=== PATIENT | female | born 1995 | race Caucasian/White ===

== ENCOUNTER 2019-02-16 04:20 | Emergency (ER) | payer BC ==
[~2019-02-16 04:20] MED LIST: DOCU-416 PO; HYDR-385 PO; MINO100C27 PO; NO RTN MEDS; OXYC-854 PO
--- NOTE | 2019-02-16 04:24 | ER Report ---
History and Physical Time Seen By MD: 04:20 HPI/ROS CHIEF COMPLAINT: Right flank pain HISTORY OF PRESENT ILLNESS: 23-year-old female presents to the ER with her father complaining of severe right flank pain since 2:30 AM. Patient's history is significant for developing a kidney stone with right flank pain. On Monday of this last week she was in [place], [place]. She was seen by urology and had a stent placed in her right ureter. They were unable to retrieve a 3 mm kidney stone. Patient reports she's not had a bowel movement since Monday. She was taking hydrocodone for pain relief. She took Zofran at home tonight before coming in. She's also been taking Tylenol for pain relief as well as ibuprofen. She's not really had any pain. Her last menstrual period was over the January. Patient has repetitive vomiting during the interview of food matter in clear substance. No blood was noted REVIEW OF SYSTEMS: Respiratory: No cough, no dyspnea. Cardiovascular: No chest pain, no palpitations. Gastrointestinal: As above Musculoskeletal: As above Allergies: Coded Allergies: amoxicillin (Verified Allergy, Intermediate, RASH, 02/21/19) Home Meds Active Scripts Tramadol Hcl (TRAMADOL HCL) 50 Mg Tablet, 50-100 MG PO Q4-6H, #14 TAB 0 Refills Prov:TAE ZAZUETA [facility]- 02/21/19 Promethazine Hcl (PROMETHAZINE HCL) 25 Mg Tablet, 25 MG PO Q8H, #20 TAB 0 Refills Prov:TAE ZAZUETA [facility] 02/21/19 Ciprofloxacin Hcl 500 Mg Tab (CIPRO 500 MG TAB) 500 Mg Tablet, 500 MG PO BID for infection, #14 Prov:ZORAN FALLON DO 02/16/19 Reported Medications Ondansetron Hcl (ONDANSETRON HCL) 4 Mg Tablet, 4 MG PO Q8H PRN for NAUSEA, #10 TAB 02/18/19 Ibuprofen (IBUPROFEN) 600 Mg Tablet, 1 TAB PO Q6H PRN for pain, #20 TAB 02/18/19 Docusate Sodium (COLACE) 100 Mg Capsule, 100 MG PO BID, #30 CAPSULE 02/18/19 Hydrocodone Bit/Acetaminophen (NORCO 5-325 TABLET) 1 Each Tablet, 1-2 EACH PO Q6H PRN for pain, #10 TAB 02/18/19 Oxybutynin Chloride (DITROPAN XL) 10 Mg Tab.er.24, 10 MG PO QDAY PRN for bladder urgency, #10 TAB 02/18/19 Doxycycline Hyclate (DOXYCYCLINE HYCLATE) 100 Mg Tablet.dr, 100 MG PO QDAY 02/18/19 Discontinued Reported Medications Minocycline Hcl (MINOCYCLINE HCL) 100 Mg Capsule, 100 MG PO QDAY, CAPSULE 07/05/17 Discontinued Scripts Hydrocodone Bit/Acetaminophen (HYDROCODON-ACETAMINOPHEN 5-325) 1 Each Tablet, 1 EACH PO Q4-6H PRN for PAIN, #12 TAKE ONE TABLET BY MOUTH EVERY 4-6 HOURS NEEDED FOR PAIN Prov:ZORAN FALLON DO 02/16/19 Ondansetron 4 Mg Odt (ONDANSETRON 4 MG ODT) 4 Mg Tab.rapdis, 4 MG PO Q6H PRN for NAUSEA/VOMITING, #12 TAB Prov:ZORAN FALLON DO 02/16/19 Hydrocodone Bit/Acetaminophen (HYDROCODON-ACETAMINOPHEN 5-325) 1 Each Tablet, 1- 2 TAB PO Q4H PRN for PAIN, #20 TAB 0 Refills Prov:VANGIE MERRILL MD 07/20/17 Docusate Sodium (COLACE) 100 Mg Capsule, 1 CAP PO BID, #30 CAP 0 Refills TAKE WITH A FULL GLASS OF WATER Prov:VANGIE MERRILL MD 07/20/17 Reviewed Nurses Notes: Yes Old Medical Records Reviewed: Yes Hx Smoking: No Smoking Status: Never Smoker Exposure to Second Hand Smoke?: No Constitutional Physical Exam General Appearance: The patient is alert, has no immediate need for airway protection and no current signs of toxicity. Skin pale, cool and dry Eyes: Pupils equal and round no injection. Anicteric sclera Respiratory: Chest is non tender, lungs are clear to auscultation. Cardiac: regular rate and rhythm Gastrointestinal: Abdomen is soft and non tender, no masses, bowel sounds normal. Right CVA tenderness Musculoskeletal: Neck: Neck is supple and non tender. Extremities have full range of motion and are non tender. Skin: No rashes or lesions. DIFFERENTIAL DIAGNOSIS: After history and physical exam differential diagnosis was considered for flank pain including but not limited to musculoskeletal causes, kidney stone, pyelonephritis, shingles, and intra-abdominal causes such as diverticulitis and appendicitis. Additionally,abdominal pain including but not limited to appendicitis, cholecystitis, gastritis and urinary tract infection. Medical Decision Making Data Points Laboratory Hematology Test 02/16/19 04:29 White Blood Count 7.3 k/uL (4.5-11.0) Red Blood Count 5.00 M/uL (4.17-5.56) Hemoglobin 15.2 g/dL (12.0-16.0) Hematocrit 43.4 % (34.0-47.0) Mean Corpuscular Volume 86.8 fL (80.0-96.0) Mean Corpuscular Hemoglobin 30.4 pg (26.0-33.0) Mean Corpuscular Hemoglobin Concent 35.1 g/dL (32.0-36.0) Red Cell Distribution Width 12.8 % (11.5-14.5) Platelet Count 261 K/uL (150-450) Mean Platelet Volume 8.3 fL (7.2-11.1) Neutrophils (%) (Auto) 58.6 % (39.4-72.5) Lymphocytes (%) (Auto) 30.0 % (17.6-49.6) Monocytes (%) (Auto) 8.1 % (4.1-12.4) Eosinophils (%) (Auto) 2.8 % (0.4-6.7) Basophils (%) (Auto) 0.5 % (0.3-1.4) Nucleated RBC Relative Count (auto) 0.0 /100WBC Neutrophils # (Auto) 4.3 K/uL (2.0-7.4) Lymphocytes # (Auto) 2.2 K/uL (1.3-3.6) Monocytes # (Auto) 0.6 K/uL (0.3-1.0) Eosinophils # (Auto) 0.2 K/uL (0.0-0.5) Basophils # (Auto) 0.0 K/uL (0.0-0.1) Nucleated RBC Absolute Count (auto) 0.00 K/uL Chemistry Test 02/16/19 04:29 Sodium Level 138 mmol/L (137-145) Potassium Level 3.5 mmol/L (3.5-5.0) Chloride Level 104 mmol/L (98-107) Carbon Dioxide Level 24 mmol/L (22-31) Blood Urea Nitrogen 10 mg/dl (7-18) Creatinine 0.90 mg/dl (0.52-1.04) Glomerular Filtration Rate Calc > 60.0 Random Glucose 94 mg/dl (75-110) Calcium Level 9.2 mg/dl (8.4-10.2) Total Bilirubin 0.5 mg/dl (0.2-1.3) Aspartate Amino Transf (AST/SGOT) 22 U/L (0-35) Alanine Aminotransferase (ALT/SGPT) 29 U/L (0-56) Alkaline Phosphatase 46 U/L (0-126) Total Protein 7.5 g/dl (6.3-8.2) Albumin 4.5 g/dl (3.5-5.0) Amylase Level 61 U/L (0-110) Lipase 90 U/L (23-300) Human Chorionic Gonadotropin, Qual Negative (NEGATIVE) Urinalysis Test 02/16/19 04:26 Urine Color Yellow Urine Clarity Cloudy Urine pH 6.0 pH (4.8-9.5) Urine Specific [place] 1.016 Urine Protein 100 mg/dL (NEGATIVE) Urine Glucose (UA) Negative mg/dL (NEGATIVE) Urine Ketones Negative mg/dL (NEGATIVE) Urine Blood Large (NEGATIVE) Urine Nitrite Negative (NEGATIVE) Urine Bilirubin Negative (NEGATIVE) Urine Urobilinogen Negative mg/dL (0.2-1.9) Urine Leukocyte Esterase Moderate (NEGATIVE) Urine RBC 2330 /HPF (0-2/HPF) Urine WBC 112 /HPF (0-5/HPF) Urine Squamous Epithelial Cells Many /LPF (</=FEW) Urine Bacteria Many /HPF (NONE-FEW) Urine Mucus Few /HPF (NONE-FEW) Microbiology Microbiology Date/Time Source Procedure Growth Status 02/16/19 04:26 Clean Catch Midstream Ur Urine Culture - Final NO GROWTH AFTER 2 DAYS Complete EKG/Imaging Imaging Results: CT scan of the abdomen and pelvis with IV contrast was obtained. The results of the study are COMPUTED TOMOGRAPHY ABDOMEN AND PELVIS WITH INTRAVENOUS CONTRAST DATE OF EXAM: 02/16/2019 4:41 AM INDICATION: Severe right flank pain. Recent ureteral stent placement. No bowel movements. COMPARISON: None. TECHNIQUE: Contrast enhanced abdomen and pelvis CT performed during the injection of 75 ml of Isovue 370. Sagittal and coronal reconstructions were performed. One of the following dose optimization techniques was utilized in the performance of this exam: Automated exposure control; adjustment of the mA and/or kV according to the patient's size; or use of an iterative reconstruction technique. Specific details can be referenced in the facility's radiology CT exam operational policy. FINDINGS: Lung bases: 4 mm right lower lobe nodule on image 11 series 2 likely does not require follow-up given the patient's age. Minimal atelectasis. Liver and hepatic vasculature: Normal. Gallbladder and bile ducts: Normal. Spleen: Normal. Pancreas: Normal. Adrenals: Normal. Kidneys, ureters and bladder: Right ureteral stents in place with pigtails in the urinary bladder and collecting system. Mild right hydronephrosis and hydroureter. The right kidney is slightly hypoenhancing compared to the left. No suspicious focal lesion. No apparent renal or ureteral calculi. Retroperitoneum and aorta: Normal aorta. Retroaortic left renal vein. No adenopathy. GI tract, mesentery and peritoneum: Nonacute. Uterus and adnexa: Collapsing follicle in the right ovary. Bones and soft tissues: No acute abnormality or suspicious lesion. Mild leftward curvature of the lumbar spine. IMPRESSION: Mild right hydronephrosis and hydroureter with ureteral stent in place. The study was read by the radiologist. I viewed the images myself on the PACS system. ED Course/Re-evaluation Clinical Indication for ER IV: Hydration, IV Access ED Course Patient was admitted to an examination room. H&P was done. The differential diagnoses was considered. Patient with severe right flank pain and abdominal pain with vomiting that started around 2:30 AM. Patient has a known stent in her right kidney for hydronephrosis. Patient without fever. Patient's vomiting due to the severity of the pain. She is treated with IV Zofran and Phenergan 12.5 mg and Dilaudid 1 mg. Diagnostic studies are ordered. Her laboratory studies returned unremarkable except for her urine has gross hematuria with signs of infection and leukocyte esterase. A urinary cultures ordered. She's given 1 g of Rocephin to treat infection and should be discharged on Cipro 500 mg by mouth twice a day. Additional refills of Zofran, and hydrocodone were provided. Patient has a CAT scan that shows only mild hydronephrosis of the right kidney. She is gross fecal stasis of the entire right colon and transverse colon. I think that she is suffering colic as the cause of her pain. She is advised MiraLAX 3 times daily. She is advised to remain on a clear liquid diet until her bowels evacuated. Patient's advised a low threshold return for any worsening, especially fever, vomiting or severe pain. She is advised to expect some cramps as her bowels evacuated. Decision to Disposition Date: Feb 16, 2019 Decision to Disposition Time: 05:44 Depart Departure Latest Vital Signs Impression: Primary Impression: Abdominal pain Additional Impressions: Colic cramps Ureteral stenosis, right Urinary tract infection Constipation Condition: Improved Disposition: HOME OR SELF-CARE Referrals: VIVIEN JAMES MD (PCP) New Scripts Ciprofloxacin Hcl 500 Mg Tab (CIPRO 500 MG TAB) 500 Mg Tablet 500 MG PO BID for infection, #14 Prov: ZORAN FALLON DO 02/16/19 Patient Instructions: Abdominal Pain (ED), Clear Liquid Diet (ED), Constipation (ED), Urinary Tract Infection in Women (ED) Additional Instructions: Take MiraLAX 1 capful 3 times daily for the next 3 days Following clear liquid diet until your bowels evacuate Follow-up with Dr. Granados on Monday if unimproved Return to the ER for any worsening Problem Qualifiers Primary Impression: Abdominal pain Abdominal location: right upper quadrant Qualified Codes: R10.11 - Right upper quadrant pain Additional Impressions: Urinary tract infection Urinary tract infection type: acute cystitis Hematuria presence: with hematuria Qualified Codes: N30.01 - Acute cystitis with hematuria Constipation Constipation type: unspecified constipation type Qualified Codes: K59.00 - Constipation, unspecified ZORAN FALLON DO Feb 16, 2019 04:24
[2019-02-16] MEDS ORDERED: NS(*) 0.9% 1000 ML BAG 1,000 ML IV ONE ×2 (04:32→05:35)
[2019-02-16] MEDS ORDERED: PROMETHAZINE 25 MG/ML 1 ML AMP IVP ONE (04:35)
[2019-02-16] MEDS ORDERED: ONDANSETRON 4 MG/2 ML VIAL IVP ONE (04:35)
[2019-02-16] MEDS ORDERED: HYDROMORPHONE HCL 1 MG/ML SYRINGE IVP ONE (04:35)
[2019-02-16 04:40] LABS: PLATELET COUNT, AUTOMATED 261 K/uL (150-450)
[2019-02-16] MEDS ORDERED: IOPAMIDOL 76% 100 ML INFUS BTL 100 ML ONE (04:53)
--- NOTE | 2019-02-16 05:34 | RADIOLOGY IMAGING REPORT ---
[facility] PATIENT NAME: Livia Roach : 1995 MR: [id number] V: [id number] EXAM DATE: ORDERING PHYSICIAN: ZORAN FALLON TECHNOLOGIST: Location: Patient: Livia Roach : 1995 Visit/Account:[id number] Date of Sevice: 02/16/2019 COMPUTED TOMOGRAPHY ABDOMEN AND PELVIS WITH INTRAVENOUS CONTRAST DATE OF EXAM: 02/16/2019 4:41 AM INDICATION: Severe right flank pain. Recent ureteral stent placement. No bowel movements. COMPARISON: None. TECHNIQUE: Contrast enhanced abdomen and pelvis CT performed during the injection of 75 ml of Isovue 370. Sagittal and coronal reconstructions were performed. One of the following dose optimization te chniques was utilized in the performance of this exam: Automated exposure control; adjustment of the mA and/or kV according to the patient's size; or use of an iterative reconstruction technique. [facility] details can be referenced in the facility's radiology CT exam operational policy. FINDINGS: Lung bases: 4 mm right lower lobe nodule on image 11 series 2 likely does not require follow-up given the patient's age. Minimal atelectasis. Liver and hepatic vasculature: Normal. Gallbladder and bile ducts: Normal. Spleen: Normal. Pancreas: Normal. Adrenals: Normal. Kidneys, ureters and bladder: Right ureteral stents in place with pigtails in the urinary bladder an d collecting system. Mild right hydronephrosis and hydroureter. The right kidney is slightly hypoen hancing compared to the left. No suspicious focal lesion. No apparent renal or ureteral calculi. Retroperitoneum and aorta: Normal aorta. Retroaortic left renal vein. No adenopathy. GI tract, mesentery and peritoneum: Nonacute. Uterus and adnexa: Collapsing follicle in the right ovary. Bones and soft tissues: No acute abnormality or suspicious lesion. Mild leftward curvature of the l umbar spine. IMPRESSION: Mild right hydronephrosis and hydroureter with ureteral stent in place. Report Dictated By: Jus Wells MD at 02/16/2019 5:18 AM Report E-Signed By: Jus Wells MD at 02/16/2019 5:27 AM WSN:[id number]
[2019-02-16] MEDS ORDERED: KETOROLAC 30 MG/ML VIAL IVP ONE (05:35)
[2019-02-16] MEDS ORDERED: cefTRIAXone 1 GM VIAL IVP ONE (05:50)
[2019-02-16] MEDS ORDERED: ONDA4TAB9 PO (05:51)
[2019-02-16] MEDS ORDERED: LOR5/325 PO (05:51)
[2019-02-16] MEDS ORDERED: CIPR-344 PO (05:51)
[2019-02-16 06:00] VITALS: BP 123/71
[2019-02-18] MEDS ORDERED: DOXY-228 PO (08:17)
== END 2019-02-16 06:18 | disposition home or self-care (01) ==
LOC: ER 04:27
DX: R10.11 Right upper quadrant pain (principal); N30.01 Acute cystitis with hematuria; K59.00 Constipation, unspecified
CPT/HCPCS: 74177; 81001; 82150; 83690; 84703; 85025; 87088; 96361; 96374; 96375; 99284; J0696; J1170; J1885; J2405; J2550; J7030; Q9967; 82040; 82247; 82310; 82374; 82435; 82565; 82947; 84075; 84132; 84155; 84295; 84450; 84460; 84520

== ENCOUNTER 2019-02-18 08:56 | Day surgery (SDC) | payer BC ==
--- NOTE | 2019-02-17 23:19 | HISTORY AND PHYSICAL ---
DATE OF ADMISSION: February 18, 2019 CHIEF COMPLAINT Right kidney stone with indwelling stent. HISTORY OF PRESENT ILLNESS Patient is a 23-year-old white female who originally presented to the emergency room in [place], [place], with right flank pain with associated nausea and vomiting. She was subsequently taken to the operating room there on the and underwent right stent placement after ureteroscopy was unsuccessful. She has returned home and has continued to have significant right flank pain. 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 A CT scan was performed, which showed good stent placement on the right side. Her stone was approximately 4.5 cm above the right ureteral orifice. She was also having significant constipation. She was discharged home and given a bowel regimen, which has improved some of her symptoms. However, she has continued to have a significant right flank pain with nausea interfering with her daily activities. I have discussed with both the patient and her family that if we proceed with ureteroscopy at this time, there is a significant chance we will have to replace her stent following a manipulation, given the fact that her stent has only been in place for five days. There is also a chance that she could not have enough pass with ureteral dilation to allow for a safe ureteroscopy procedure. If that is the case, we will have try to put in a softer stent to see if we can alleviate some of her symptoms. PAST MEDICAL HISTORY Acne. PAST SURGICAL HISTORY 1. Hymenectomy. 2. LIS for anal fissure. MEDICATIONS 1. Doxycycline. 2. Topical clindamycin with Retin-A. ALLERGIES AMOXICILLIN. SOCIAL HISTORY Patient is single and lives in [place], [place]. FAMILY HISTORY Significant for stones in her grandfather. REVIEW OF SYSTEMS Patient is without chest pain, productive cough, fever, chills, bleeding disorder, chronic headaches, liver disease, or prior stones. PHYSICAL EXAMINATION GENERAL: Patient is a well-developed, well-nourished white female in no acute distress. HEENT: Normocephalic, atraumatic. CHEST: Clear to auscultation bilaterally. CARDIOVASCULAR: Regular rate and rhythm. ABDOMEN: Soft, nontender. No masses are palpated. : Deferred to the OR. EXTREMITIES: Without clubbing, cyanosis, or edema. NEUROLOGIC: Nonfocal. IMPRESSION A 23-year-old white female with a right distal 3 mm stone with a current indwelling ureteral stent for the past six days, with continuing stent discomfort with associated nausea and vomiting. PLAN We will perform anesthetic cystoscopy and stent removal with attempted ureteroscopy, stone manipulation, followed by possible stent replacement as indicated. LAUREN
[~2019-02-18] VITALS: Ht 160 cm; Wt 49.9 kg
[2019-02-18] VITALS (8 sets, daily range): BP systolic 102–121; BP diastolic 64–76
[~2019-02-18 08:56] MED LIST changes: +CIPR-344 PO; +DOXY-228 PO; +LOR5/325 PO; +ONDA4TAB9 PO
[2019-02-18] MEDS ORDERED: LEVOFLOXACIN/D5W*500 MG/100 ML 100 ML IVPB ONE (11:10)
[2019-02-18] MEDS ORDERED: NORMOSOL R SOLN(*) 1000 ML BAG 1,000 ML IV PRN (11:15)
[2019-02-18] MEDS ORDERED: LIDOCAINE/SOD BICARB 8.4% SYR ID ONE (11:15)
[2019-02-18] MEDS ORDERED: MIDAZOLAM 2 MG/2 ML VIAL IVP PRN (11:15)
[2019-02-18] MEDS ORDERED: FAMOTIDINE 20 MG TAB PO ONE (11:15)
[2019-02-18] MEDS ORDERED: fentaNYL CITR 100 MCG/2 ML AMP ONE (12:41)
[2019-02-18] MEDS ORDERED: DEXAMETHASONE SOD PHOS 10MG/ML ONE (12:42)
[2019-02-18] MEDS ORDERED: PROPOFOL EMUL(*) 10MG/ML 20 ML 20 ML ONE (12:42)
[2019-02-18] MEDS ORDERED: ONDANSETRON 4 MG/2 ML VIAL ONE (12:42)
[2019-02-18] MEDS ORDERED: LIDOCAINE MPF 1% 5 ML VIAL ONE (12:42)
[2019-02-18] MEDS ORDERED: BELLADONNA ALK/OPIUM 60MG SUPP PR ONE (12:50)
[2019-02-18] MEDS ORDERED: IOPAMIDOL-200 50 ML VIAL IS ONE (12:50)
[2019-02-18] MEDS ORDERED: OXYB10TA21 PO (14:23)
[2019-02-18] MEDS ORDERED: DOCU-416 PO (14:24)
[2019-02-18] MEDS ORDERED: HYDR-653 PO (14:24)
[2019-02-18] MEDS ORDERED: IBUP600T22 PO (14:25)
[2019-02-18] MEDS ORDERED: ONDA-2 PO (14:26)
--- NOTE | 2019-02-18 14:42 | RADIOLOGY IMAGING REPORT ---
FACILITY: [facility] PATIENT NAME: Livia Roach : 1995 MR: [id number] V: [id number] EXAM DATE: ORDERING PHYSICIAN: FAYE DYSON TECHNOLOGIST: Location: [facility] Patient: Livia Roach : 1995 Visit/Account:[id number] Date of Sevice: 02/18/2019 C-ARM FLUORO 1 HR HISTORY: Hematuria. ADDITIONAL HISTORY: None. COMPARISON: CT 02/16/2019 FINDINGS: Fluoroscopy provided for intraoperative procedure. Fluoroscopy time of 28 seconds with cumulative dose of 9.53 mGym2 meter squared. 68 intraoperative spot images Fluoroscopy provided for right ureteral stent exchange. Final images show the stent in good position . IMPRESSION: 1. Fluoroscopy provided for right ureteral stent exchange Report Dictated By: Layo De La O MD at 02/18/2019 2:31 PM Report E-Signed By: Layo De La O MD at 02/18/2019 2:34 PM LESVIAN:RUSSELL
[2019-02-18] MEDS ORDERED: NS 0.9% 3000 ML IRRIGATION BAG IR ONE (14:46)
[2019-02-18] MEDS ORDERED: PROMETHAZINE 25 MG/ML 1 ML AMP ONE (15:25)
--- NOTE | 2019-02-19 03:51 | OPERATIVE REPORT 1 ---
EVENT DATE: February 18, 2019 SURGEON: Shakeel Granados MD ANESTHESIOLOGIST: Sky Son DO ANESTHESIA: General. PREOPERATIVE DIAGNOSIS A 3 mm right distal ureteral calculus with indwelling ureteral stent. POSTOPERATIVE DIAGNOSIS A 3 mm right distal ureteral calculus with indwelling ureteral stent. PROCEDURE PERFORMED 1. Cystoscopy. 2. Grasping and removal of right double-J stent. 3. Right semirigid and flexible ureteroscopy with holmium laser fragmentation of stone and grasping and removal of fragments. 4. Placement of right internal double-J ureteral stent. ESTIMATED BLOOD LOSS Minimal. INTRAVENOUS FLUIDS Crystalloid. DRAINS 5-Colombian x 24 cm Polaris Microvasive stent on right. COMPLICATIONS None. PATHOLOGY Stone fragments sent for permanent chemical analysis. CONDITION Patient taken to recovery room awake and in stable condition. STATEMENT OF MEDICAL NECESSITY Patient is a 23-year-old white female in otherwise good health, who presented to the emergency room in [place], [place], early last week with right flank pain and was found to have a 3 mm calculus. She subsequently underwent placement of a right double-J stent after ureteroscopy was unsuccessful. Since then, she has had significant stent pain and has required narcotics, which has resulted in significant constipation and side effects. 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 A CT scan was performed and showed good stent placement, and her stone was in the distal ureter just next to the stent. Given her significant symptoms from her stent, she is now being brought to the operating room for planned stent removal with ureteroscopy. Both she and her family have been informed that it appears that she has a epwvpbw-oclc-cimrnbc-diameter ureter, which made previous ureteroscopy unsuccessful. Passive ureteral stent dilation is likely to take at least a week or two for maximum benefit. Her current stent has been in there approximately 5-1/2 days, which may necessitate unsuccessful ureteroscopy and/or need for stent replacement at the conclusion of the procedure. She is currently not a candidate for extracorporeal shockwave lithotripsy given the stone location and being of childbearing age. DESCRIPTION OF PROCEDURE Patient was brought to the operating room, and after general anesthetic was obtained, she was placed in the dorsal lithotomy position and prepped and draped in the usual sterile manner. Anesthetic cystoscopy was performed with the 21- Colombian rigid Dill sheath and a 30-degree lens. She had a normal-appearing bladder. The stent was seen emanating from the right ureteral orifice. It was grasped at its distal end and brought out of the meatus. It was then backloaded with a 0.035 double floppy wire. The stent was then removed, and this wire was used to place an 8-10 dilating system. The 8 sheath entered without much resistance; however, the 10 was significantly snug and required slow, gentle pressure to advance in the ureter. At this point, the 8 sheath was removed and a second wire was placed alongside the 10 sheath. The 10 sheath was then removed. One wire was used to secure it to the drape as a safety wire, and the next wire was backloaded into the Dill semirigid ureteroscope. The scope was advanced over the wire and, under direct vision with the aid of the camera, advanced into the distal ureter. The ureter was significantly snug around the scope up to the level of the stone, which was approximately 4.5 to 5 cm above the ureteral orifice. It was light wild in color with a regular surface The holmium laser fiber was then introduced, and in situ laser lithotripsy on dusting settings was performed. There was one remaining fragment of approximately 1 x 2 mm. The laser fiber was removed from the working port of the scope, and this was replaced with a Tricep grasping forceps. This one remaining fragment was grasped and brought out the ureter into the bladder, and then out the urethra. It was then saved and sent for analysis. The ureteroscope was then reintroduced and advanced to just above where the stone was grasped; however, it could not be advanced further without significant resistance. Therefore, a 0.035 wire was placed in the scope and up in the upper pole of the robert. The flexible scope was removed, and the disposable LithoVue ureteroscope was advanced over the wire. Under direct vision and aid of fluoroscopy, it was advanced in the distal ureter. However, the scope would not advance more than approximately 6 cm up the ureter without meeting significant resistance. After several attempts, this was abandoned and it was removed, along with the working wire. The safety wire was then backloaded into the cystoscope, and this was used to place a 5-Colombian x 24 cm Polaris Microvasive stent on the right side. The string was left on the distal end and was taped to a Tegaderm on the patient's perineum. The patient's bladder was drained through the cystoscopic sheath. Final fluoroscopic imaging revealed good curling in the bladder and the renal pelvis. A B and O suppository was given at the conclusion of the case. She was awakened in the operating room and taken to the recovery area in stable condition. The plan will be to allow the patient to be discharged home today on her prior medications. We will see her in the urology clinic in 36 hours to remove her stent using the string. LAUREN
== END 2019-02-18 14:41 | disposition home or self-care (01) ==
LOC: OR 08:56
PROVIDERS: ATTEND Urology
DX: N20.1 Calculus of ureter (principal)
CPT/HCPCS: 52332; 52352; 76000; 81001; 81025; 87088; J1100; J1956; J2001; J2405; J2550; J2704; J3010; C1769; C1894; C2617; Q9966

== ENCOUNTER 2019-02-21 17:25 | Emergency (ER) | payer BC ==
[~2019-02-21 17:25] MED LIST changes: +HYDR-653 PO; +IBUP600T22 PO; +ONDA-2 PO; +OXYB10TA21 PO
--- NOTE | 2019-02-21 17:51 | ER Report ---
History and Physical Time Seen By MD: 17:37 Hx. of Stated Complaint: pt reports r kidney stone stent placement, monday, and removal, monday. vomiting at home with return of R flank pain HPI/ROS CHIEF COMPLAINT: Right flank pain HISTORY OF PRESENT ILLNESS: 23-year-old female with recent history of nephrolithiasis, had right ureteral stent placed on February 18 which was removed yesterday, and has been experiencing right flank pain since then, associated with nausea and vomiting. She reports history of flank pain for 10 days. First noted back pain on February 09. The pain worsened in severity, so she went to the [facility] ED on the February 11 and was found to have a kidney stone. She had a stent placed in removed, but the stone still did not pass. She then had surgery to remove the stone and another ureteral stent was placed on February [address] Dyson. The stent was removed yesterday. She continues to have persistent pain, that was 8/10 but is now 6/10, and nausea. She denies dysuria and hematuria. Denies denies changes in bowel habits or change in urination. REVIEW OF SYSTEMS: Constitutional: No fever, no chills. Eyes: No discharge. ENT: No sore throat. Cardiovascular: No chest pain, no palpitations. Respiratory: No cough, no shortness of breath. Gastrointestinal: Right lower abdominal discomfort Genitourinary: As above Musculoskeletal: As above Skin: No rashes. Neurological: No headache. Allergies: Coded Allergies: amoxicillin (Verified Allergy, Intermediate, RASH, 02/21/19) Home Meds Active Scripts Tramadol Hcl (TRAMADOL HCL) 50 Mg Tablet, 50-100 MG PO Q4-6H, #14 TAB 0 Refills Prov:TAE ZAZUETA [facility]- 02/21/19 Promethazine Hcl (PROMETHAZINE HCL) 25 Mg Tablet, 25 MG PO Q8H, #20 TAB 0 Refills Prov:TAE ZAZUETA [facility]- 02/21/19 Ciprofloxacin Hcl 500 Mg Tab (CIPRO 500 MG TAB) 500 Mg Tablet, 500 MG PO BID for infection, #14 Prov:ZORAN FALLON DO 02/16/19 Reported Medications Ondansetron Hcl (ONDANSETRON HCL) 4 Mg Tablet, 4 MG PO Q8H PRN for NAUSEA, #10 TAB 02/18/19 Ibuprofen (IBUPROFEN) 600 Mg Tablet, 1 TAB PO Q6H PRN for pain, #20 TAB 02/18/19 Docusate Sodium (COLACE) 100 Mg Capsule, 100 MG PO BID, #30 CAPSULE 02/18/19 Hydrocodone Bit/Acetaminophen (NORCO 5-325 TABLET) 1 Each Tablet, 1-2 EACH PO Q6H PRN for pain, #10 TAB 02/18/19 Oxybutynin Chloride (DITROPAN XL) 10 Mg Tab.er.24, 10 MG PO QDAY PRN for bladder urgency, #10 TAB 02/18/19 Doxycycline Hyclate (DOXYCYCLINE HYCLATE) 100 Mg Tablet.dr, 100 MG PO QDAY 02/18/19 Discontinued Reported Medications Minocycline Hcl (MINOCYCLINE HCL) 100 Mg Capsule, 100 MG PO QDAY, CAPSULE 07/05/17 Discontinued Scripts Hydrocodone Bit/Acetaminophen (HYDROCODON-ACETAMINOPHEN 5-325) 1 Each Tablet, 1 EACH PO Q4-6H PRN for PAIN, #12 TAKE ONE TABLET BY MOUTH EVERY 4-6 HOURS NEEDED FOR PAIN Prov:ZORAN FALLON DO 02/16/19 Ondansetron 4 Mg Odt (ONDANSETRON 4 MG ODT) 4 Mg Tab.rapdis, 4 MG PO Q6H PRN for NAUSEA/VOMITING, #12 TAB Prov:ZORAN FALLON DO 02/16/19 Hydrocodone Bit/Acetaminophen (HYDROCODON-ACETAMINOPHEN 5-325) 1 Each Tablet, 1- 2 TAB PO Q4H PRN for PAIN, #20 TAB 0 Refills Prov:VANGIE MERRILL MD 07/20/17 Docusate Sodium (COLACE) 100 Mg Capsule, 1 CAP PO BID, #30 CAP 0 Refills TAKE WITH A FULL GLASS OF WATER Prov:VANGIE MERRILL MD 07/20/17 Past Medical/Surgical History The patient has a past medical surgical history of hymenectomy, right ureteral stent 2, right kidney stone. Reviewed Nurses Notes: Yes Hx Smoking: No Smoking Status: Never Smoker Exposure to Second Hand Smoke?: No Hx Substance Use Disorder: No Constitutional Vital Sign - Last 24 Hours 02/21/19 02/21/19 02/21/19 02/21/19 17:35 17:45 18:00 18:15 Temp 98.0 Pulse 67 126 86 Resp 16 B/P (MAP) 134/92 122/80 (94) Pulse Ox 97 87 87 99 O2 Delivery Room Air 02/21/19 02/21/19 02/21/19 02/21/19 18:30 18:45 18:50 18:55 Pulse 71 67 62 62 B/P (MAP) 121/76 (91) Pulse Ox 88 94 98 95 02/21/19 02/21/19 02/21/19 02/21/19 19:00 19:15 19:20 19:25 Pulse 61 62 62 64 B/P (MAP) 111/68 (82) Pulse Ox 92 99 96 94 02/21/19 02/21/19 02/21/19 02/21/19 19:30 19:35 19:40 19:45 Pulse 67 66 66 66 B/P (MAP) 106/63 (77) Pulse Ox 95 93 98 97 Intake and Output 02/21/19 02/21/19 02/22/19 15:03 23:03 07:03 Intake Total 1000 ml Balance 1000 ml Physical Exam General Appearance: The patient is alert, has no immediate need for airway protection and no signs of toxicity. Eyes: Pupils equal and round no pallor or injection. ENT, Mouth: Mucous membranes are moist. Respiratory: There are no retractions, lungs are clear to auscultation. Cardiovascular: Regular rate and rhythm. Gastrointestinal: Abdomen is soft and non tender, no masses, bowel sounds normal. Neurological: alert and oriented x4. Following commands. No neurological de ficits. Skin: Warm and dry, no rashes. Musculoskeletal: mild discomfort with deep palpation to right lower quadrant. No CVA tenderness. Extremities are nontender, nonswollen and have full range of motion. DIFFERENTIAL DIAGNOSIS: After history and physical exam differential diagnosis was considered for renal colic, intraabdominal perforation, UTI, constipation. Medical Decision Making Data Points Result Diagram: 02/21/19 1740 02/21/19 1740 Laboratory Hematology Test 02/21/19 17:40 White Blood Count 6.0 k/uL (4.5-11.0) Red Blood Count 4.88 M/uL (4.17-5.56) Hemoglobin 14.5 g/dL (12.0-16.0) Hematocrit 42.3 % (34.0-47.0) Mean Corpuscular Volume 86.8 fL (80.0-96.0) Mean Corpuscular Hemoglobin 29.8 pg (26.0-33.0) Mean Corpuscular Hemoglobin Concent 34.3 g/dL (32.0-36.0) Red Cell Distribution Width 12.3 % (11.5-14.5) Platelet Count 305 K/uL (150-450) Mean Platelet Volume 8.3 fL (7.2-11.1) Neutrophils (%) (Auto) 68.3 % (39.4-72.5) Lymphocytes (%) (Auto) 23.4 % (17.6-49.6) Monocytes (%) (Auto) 6.8 % (4.1-12.4) Eosinophils (%) (Auto) 1.1 % (0.4-6.7) Basophils (%) (Auto) 0.4 % (0.3-1.4) Nucleated RBC Relative Count (auto) 0.1 /100WBC Neutrophils # (Auto) 4.1 K/uL (2.0-7.4) Lymphocytes # (Auto) 1.4 K/uL (1.3-3.6) Monocytes # (Auto) 0.4 K/uL (0.3-1.0) Eosinophils # (Auto) 0.1 K/uL (0.0-0.5) Basophils # (Auto) 0.0 K/uL (0.0-0.1) Nucleated RBC Absolute Count (auto) 0.01 K/uL Chemistry Test 02/21/19 17:40 Sodium Level 139 mmol/L (137-145) Potassium Level 3.4 mmol/L (3.5-5.0) Chloride Level 101 mmol/L (98-107) Carbon Dioxide Level 25 mmol/L (22-31) Blood Urea Nitrogen 9 mg/dl (7-18) Creatinine 0.90 mg/dl (0.52-1.04) Glomerular Filtration Rate Calc > 60.0 Random Glucose 99 mg/dl (75-110) Calcium Level 9.8 mg/dl (8.4-10.2) Total Bilirubin 1.0 mg/dl (0.2-1.3) Aspartate Amino Transf (AST/SGOT) 28 U/L (0-35) Alanine Aminotransferase (ALT/SGPT) 38 U/L (0-56) Alkaline Phosphatase 54 U/L (0-126) Total Protein 8.3 g/dl (6.3-8.2) Albumin 4.7 g/dl (3.5-5.0) Urinalysis Test 02/21/19 17:30 Urine Color Yellow Urine Clarity Cloudy Urine pH 5.0 pH (4.8-9.5) Urine Specific [place] 1.014 Urine Protein 100 mg/dL (NEGATIVE) Urine Glucose (UA) Negative mg/dL (NEGATIVE) Urine Ketones Negative mg/dL (NEGATIVE) Urine Blood Moderate (NEGATIVE) Urine Nitrite Negative (NEGATIVE) Urine Bilirubin Negative (NEGATIVE) Urine Urobilinogen Negative mg/dL (0.2-1.9) Urine Leukocyte Esterase Trace (NEGATIVE) Urine RBC 45 /HPF (0-2/HPF) Urine WBC 52 /HPF (0-5/HPF) Urine Squamous Epithelial Cells Many /LPF (</=FEW) Urine Bacteria Many /HPF (NONE-FEW) Urine Mucus Few /HPF (NONE-FEW) EKG/Imaging Imaging PATIENT NAME: Livia Roach : 1995 MR: [id number] V: [id number] EXAM DATE: [id number] ORDERING PHYSICIAN: TAE ZAZUETA TECHNOLOGIST: Location: [facility] Patient: Livia Roach : 1995 Visit/Account:[id number] Date of Sevice: 02/21/2019 EXAMINATION: CT abdomen and pelvis with IV contrast HISTORY: Abdominal pain. Recent ureteral stent removal. TECHNIQUE: Axial CT images of the abdomen and pelvis were obtained with IV contrast, with coronal and sagittal 2D reconstructed images. One of the following dose optimization techniques was utilized in the performance of this exam: Automated exposure control; adjustment of the mA and/or kV according to the patient's size; or use of an iterative reconstruction technique. Specific details can be referenced in the facility's radiology CT exam operational policy. Contrast: 75 mL of IV Isovue-370. COMPARISON: 02/16/2019. FINDINGS: Liver: Negative. Gallbladder and bile ducts: Negative. Spleen: Negative. Pancreas: Negative. Adrenal glands: Negative. Kidneys: The right-sided nephroureteral stent has been removed since the prior exam. On the current study there is mild wall thickening and urothelial enhancement along the right renal pelvis and right ureter. This could relate to ascending urinary infection with pyelitis or reactive urothelial inflammation from the recent ureteral stent placement. The renal cortical parenchyma enhances normally without CT evidence of pyelonephritis. No urinary calculi or hydron ephrosis. Bowel and peritoneum: The small bowel and colon are normal in caliber. No localized bowel wall thickening. The segmentally visualized appendix is unremarkable. Trace amount of free fluid in the pelvis, within normal limits for physiologic fluid.. No free intraperitoneal air. Pelvic structures: The urinary bladder is unremarkable. There is a 1.4 cm peripherally enhancing cystic focus in the right ovary, compatible with a physiologic corpus luteum. Lymph node assessment: Negative. Vessels: Negative. Musculoskeletal: Negative. Body wall: Negative. Lung bases: Negative. IMPRESSION: 1. The right nephroureteral stent has been removed. There is wall thickening and urothelial enhancement along the right renal pelvis and right ureter. Findings could be due to ascending urinary infection with pyelitis or reactive inflammation along the collecting system and ureter from recent stent placement. Correlate clinically and with appropriate laboratory analysis. 2. No hydronephrosis. The renal cortical parenchyma enhances normally. 3. No other acute intra-abdominal findings. Report Dictated By: Derrick Santoro MD at 02/21/2019 6:49 PM Report E-Signed By: Derrick Santoro MD at 02/21/2019 7:19 PM WSN:[id number] ED Course/Re-evaluation Clinical Indication for ER IV: Hydration, IV Access ED Course The patient was admitted to room. A history and physical obtained. Differential diagnoses were considered. IV was started. A CBC, CMP, UA were collected. A 1 L normal saline bolus was given. Laboratory studies unremarkable. UA showing proteinuria, moderate blood, 52-year-old white blood cells, many epithelial cells, any urine bacteria, patient is currently being treated with appropriate antibiotics. Patient was given 4 mg IV Zofran. [address] of the abdomen pelvis showing right nephroureteral stent has been removed. There is wall thickening and urothelial enhancement along the right renal pelvis and right ureter. Findings could be due to ascending urinary infection with pyelitis or reactive inflammation along the collecting system and ureter from recent stent placement. The results were reviewed with the patient and her parents the bedside. I also spoke with Dr. Augustine, the urologist on-call, he said that this is a typical presentation post stent placement and retrieval. Patient will need to bed rest, anti-inflammatories, pain control, typically these are self- limiting. I did expect this to the patient and the parents. She was given a prescription for Phenergan and tramadol. She had no other questions or concerns at this time and discharged home. Currently the patient is feeling better, no nausea minimal pain at this time. Decision to Disposition Date: Feb 21, 2019 Decision to Disposition Time: 19:47 Depart Departure Latest Vital Signs Vital Signs Date Time Temp Pulse Resp B/P (MAP) Pulse Ox O2 Delivery O2 Flow Rate FiO2 02/21/19 19:45 66 97 02/21/19 19:30 106/63 (77) 02/21/19 17:35 98.0 16 Room Air Impression: Primary Impression: History of ureter stent Additional Impression: Renal colic on right side Condition: Improved Disposition: HOME OR SELF-CARE Referrals: CASIE BOYCE (PCP) FAYE DYSON MD 1 Week New Scripts Tramadol Hcl (TRAMADOL HCL) 50 Mg Tablet 50-100 MG PO Q4-6H, #14 TAB 0 Refills Prov: TAE ZAZUETAP- 02/21/19 Promethazine Hcl (PROMETHAZINE HCL) 25 Mg Tablet 25 MG PO Q8H, #20 TAB 0 Refills Prov: TAE ZAZUETAP- 02/21/19 Patient Instructions: Ureteral Stent Placement (DC) Additional Instructions: No concerning findings on lab studies today. No concerning findings on the CT. Bed-rest for the next 24-48 hours. Warm bath may help with some of your discomfort. Continue taking your antibiotics as prescribed. zofran or phenergan for nausea and vomiting. Tramadol for severe pain. Ibuprofen and or Tylenol for pain. Follow up with Dr. Dyson next week for reevaluation. Return to the ED for any other concerns or worsening symptoms. Problem Qualifiers TAE ZAZUETAP- Feb 21, 2019 17:51
[2019-02-21] MEDS ORDERED: ONDANSETRON 4 MG/2 ML VIAL IVP ONE (18:10)
[2019-02-21] MEDS ORDERED: MORPHINE 4 MG/ML SDV IVP ONE (18:10)
[2019-02-21] MEDS ORDERED: NS(*) 0.9% 1000 ML BAG 1,000 ML IV ONE (18:10)
[2019-02-21 18:13] LABS: PLATELET COUNT, AUTOMATED 305 K/uL (150-450)
[2019-02-21] MEDS ORDERED: IOPAMIDOL 76% 100 ML INFUS BTL 100 ML ONE (18:17)
--- NOTE | 2019-02-21 19:25 | RADIOLOGY IMAGING REPORT ---
FACILITY: [facility] PATIENT NAME: Livia Roach : 1995 MR: [id number] V: [id number] EXAM DATE: ORDERING PHYSICIAN: TAE ZAZUETA TECHNOLOGIST: Location: [facility] Patient: Livia Roach : 1995 Visit/Account:[id number] Date of Sevice: 02/21/2019 EXAMINATION: CT abdomen and pelvis with IV contrast HISTORY: Abdominal pain. Recent ureteral stent removal. TECHNIQUE: Axial CT images of the abdomen and pelvis were obtained with IV contrast, with coronal a nd sagittal 2D reconstructed images. One of the following dose optimization techniques was utilized in the performance of this exam: Autom ated exposure control; adjustment of the mA and/or kV according to the patient's size; or use of an i terative reconstruction technique. Specific details can be referenced in the facility's radiology C T exam operational policy. Contrast: 75 mL of IV Isovue-370. COMPARISON: 02/16/2019. FINDINGS: Liver: Negative. Gallbladder and bile ducts: Negative. Spleen: Negative. Pancreas: Negative. Adrenal glands: Negative. Kidneys: The right-sided nephroureteral stent has been removed since the prior exam. On the current study there is mild wall thickening and urothelial enhancement along the right renal pelvis and right ureter. This could relate to ascending urinary infection with pyelitis or reactive urothelial inflam mation from the recent ureteral stent placement. The renal cortical parenchyma enhances normally with out CT evidence of pyelonephritis. No urinary calculi or hydronephrosis. Bowel and peritoneum: The small bowel and colon are normal in caliber. No localized bowel wall thick ening. The segmentally visualized appendix is unremarkable. Trace amount of free fluid in the pelvis, within normal limits for physiologic fluid.. No free intraperitoneal air. Pelvic structures: The urinary bladder is unremarkable. There is a 1.4 cm peripherally enhancing cystic focus in the right ovary, compatible with a physiologic corpus luteum. Lymph node assessment: Negative. Vessels: Negative. Musculoskeletal: Negative. Body wall: Negative. Lung bases: Negative. IMPRESSION: 1. The right nephroureteral stent has been removed. There is wall thickening and urothelial enhanceme nt along the right renal pelvis and right ureter. Findings could be due to ascending urinary infectio n with pyelitis or reactive inflammation along the collecting system and ureter from recent stent kali cement. Correlate clinically and with appropriate laboratory analysis. 2. No hydronephrosis. The renal cortical parenchyma enhances normally. 3. No other acute intra-abdominal findings. Report Dictated By: Derrick Santoro MD at 02/21/2019 6:49 PM Report E-Signed By: Derrick Santoro MD at 02/21/2019 7:19 PM WSN:[id number]
[2019-02-21 19:30] VITALS: BP 106/63
[2019-02-21] MEDS ORDERED: PROMETHAZINE HCL 25 MG TAB TH 2 TAB/BOTTLE PO ONE (19:50)
[2019-02-21] MEDS ORDERED: TRAM-420 PO (19:53)
[2019-02-21] MEDS ORDERED: PROM-110 PO (19:53)
== END 2019-02-21 19:59 | disposition home or self-care (01) ==
LOC: ER 17:33
DX: N23 Unspecified renal colic (principal)
CPT/HCPCS: 74177; 81001; 85025; 96361; 96374; 96375; 99284; J2270; J2405; J7030; Q9967; 82040; 82247; 82310; 82374; 82435; 82565; 82947; 84075; 84132; 84155; 84295; 84450; 84460; 84520